=== PATIENT | male | born 1995 | race Caucasian/White ===

== ENCOUNTER 2020-11-30 20:48 | Emergency (ER) | payer BC ==
[2020-11-30] MEDS ORDERED: Lidocaine 1% with EPINEPHrine 1:100,000 10 ML MDV INJECT ONE (22:33)
--- NOTE | 2020-11-30 23:31 | EDM.PDOC ---
ED HPI GENERAL MEDICAL PROBLEM - General Chief Complaint: Laceration Stated Complaint: UPPER LIP LACERATION Time Seen by Provider: 11/30/20 22:20 Source of Information: Reports: Patient History Limitations: Reports: No Limitations - History of Present Illness INITIAL COMMENTS - FREE TEXT/NARRATIVE: Is a 25-year-old male with a laceration to the right upper lip. Patient states a wrench flew off and hit him in the mouth. Patient has no loose teeth or pain no LOC or other complaints. Right Upper Lip Pain Score (Numeric/FACES): 1 - Related Data Allergies Allergy/AdvReac Type Severity Reaction Status Date / Time Penicillins Allergy Hives Verified 09/05/14 11:18 Home Meds: Home Meds lisinopriL [Lisinopril] 10 mg PO QAM 11/30/20 [History] Past Medical History Cardiovascular History: Reports: Hypertension Other Musculoskeletal History: Osteogenesis imprafecta - Infectious Disease History Infectious Disease History: Reports: None - Past Surgical History Musculoskeletal Surgical History: Reports: None Social & Family History - Tobacco Use Tobacco Use Status *Q: Never Tobacco User Second Hand Smoke Exposure: Yes - Caffeine Use Caffeine Use: Reports: Coffee, Soda - Recreational Drug Use Recreational Drug Use: No ED ROS GENERAL - Review of Systems Review Of Systems: See Below Constitutional: Reports: No Symptoms HEENT: Reports: No Symptoms Respiratory: Reports: No Symptoms Cardiovascular: Reports: No Symptoms Endocrine: Reports: No Symptoms GI/Abdominal: Reports: No Symptoms : Reports: No Symptoms Musculoskeletal: Reports: No Symptoms Skin: Reports: Other (laceration) Neurological: Reports: No Symptoms Psychiatric: Reports: No Symptoms Hematologic/Lymphatic: Reports: No Symptoms Immunologic: Reports: No Symptoms ED EXAM, SKIN/RASH Exam: See Below Exam Limited By: No Limitations General Appearance: Alert, WD/WN, No Apparent Distress Throat/Mouth: No: Normal Lips (lac above lip ) Neck: Normal Inspection Respiratory/Chest: No Respiratory Distress, Lungs Clear Cardiovascular: Normal Peripheral Pulses Neurological: Alert, Oriented, Normal Cognition, Normal Gait ED SKIN PROCEDURES - Laceration/Wound Repair Right Upper Face Appearance: Superficial Anesthetic Type: Local Local Anesthesia - Lidocaine (Xylocaine): 1% Plain Local Anesthetic Volume: 3cc Skin Prep: Chlorhexidine (Hibiciens) Saline Irrigation (cc's): 1,000 Exploration/Debridement/Repair: Wound Explored Closed with: Sutures Lac/Wound length In cm: 1 Suture Size: 6-0 Suture Type: Running Course - Vital Signs Last Recorded V/S: Last Vital Signs Temp 97.3 F 11/30/20 22:36 Pulse 83 11/30/20 22:36 Resp 18 11/30/20 22:36 BP 134/78 11/30/20 22:36 Pulse Ox 96 11/30/20 22:36 - Orders/Labs/Meds Meds: Medications Discontinued Medications Generic Name Dose Route Start Last Admin Trade Name Cammie PRN Reason Stop Dose Admin Lidocaine HCl Confirm 11/30/20 22:37 11/30/20 22:41 Lidocaine 1% 5 Ml Sdv Administered 11/30/20 22:38 Not Given Dose 5 ml .ROUTE .STK-MED ONE Lidocaine HCl 5 ml 11/30/20 22:40 11/30/20 22:42 Lidocaine 1% 5 Ml Sdv INJECT 11/30/20 22:41 5 ml ONETIME ONE Administration Lidocaine/Epinephrine 10 ml 11/30/20 22:33 11/30/20 22:41 Lidocaine 1% With Epinephrine 1:100,000 10 Ml Mdv INJECT 11/30/20 22:34 Not Given ONETIME ONE Departure - Departure Time of Disposition: 23:30 Disposition: Home, Self-Care 01 Condition: Good Clinical Impression: Laceration of lip - Discharge Information *PRESCRIPTION DRUG MONITORING PROGRAM REVIEWED*: Not Applicable *COPY OF PRESCRIPTION DRUG MONITORING REPORT IN PATIENT YOJANA: Not Applicable Instructions: Laceration Care, Adult, Facial Laceration, [id number] Referrals: Delano Bartlett MD [Primary Care Provider] - Additional Instructions: The following information is given to patients seen in the emergency department who are being discharged to home. This information is to outline your options for follow-up care. We provide all patients seen in our emergency department with a follow-up referral. The need for follow-up, as well as the timing and circumstances, are variable depending upon the specifics of your emergency department visit. If you don't have a primary care physician on staff, we will provide you with a referral. We always advise you to contact your personal physician following an emergency department visit to inform them of the circumstance of the visit and for follow-up with them and/or the need for any referrals to a consulting specialist. The emergency department will also refer you to a specialist when appropriate. This referral assures that you have the opportunity for follow-up care with a specialist. All of these measure are taken in an effort to provide you with optimal care, which includes your follow-up. Under all circumstances we always encourage you to contact your private physician who remains a resource for coordinating your care. When calling for follow-up care, please make the office aware that this follow-up is from your recent emergency room visit. If for any reason you are refused follow-up, please contact the [facility] Emergency Department at and asked to speak to the emergency department charge nurse. Please follow up with your primary care physician. If you do not have a primary care physician, see below: [facility] [address] [place] [id number] [facility] [address] [place] [id number] Please follow-up with your primary care physician in a 7 to 10 days have sutures removed. 5 any drainage or redness around the area please return to the ED. You can apply bacitracin to the area 3 times a day. If you cannot have your sutures removed by your primary care physician you return to the ED. Sepsis Event Note (ED) - Evaluation Sepsis Screening Result: No Definite Risk - Focused Exam Vital Signs: Vital Signs Temp Pulse Resp BP Pulse Ox 11/30/20 22:36 97.3 F 83 18 134/78 96 - Assessment/Plan Plan: Patient is a 25-year-old male presents today for laceration to the upper lip. Patient has laceration repaired with sutures running suture. Patient will be sent home bacitracin and return precautions.
== END 2020-11-30 23:45 | disposition home or self-care (01) ==
LOC: MW.ED 20:48
DX: S01.511A Laceration without foreign body of lip, initial encounter (principal); I10 Essential (primary) hypertension; Z88.0 Allergy status to penicillin; Z79.899 Other long term (current) drug therapy; W20.8XXA Other cause of strike by thrown, projected or falling object, initial encounter; W26.8XXA Contact with other sharp object(s), not elsewhere classified, initial encounter
CPT/HCPCS: 12011; 99282-25

== ENCOUNTER 2021-05-09 15:33 | Emergency (ER) | payer BC, OTHER ==
--- NOTE | 2021-05-09 16:06 | EDM.PDOC ---
ED HPI GENERAL MEDICAL PROBLEM - General Chief Complaint: Lower Extremity Injury/Pain Stated Complaint: POSSIABLE BROKEN RT LEG Time Seen by Provider: 05/09/21 15:58 - History of Present Illness INITIAL COMMENTS - FREE TEXT/NARRATIVE: History of present illness: [] At 3 PM today while on duty the patient slept and had a direct blow to his right leg. He has a burning type severe pain that he had when he had fractures in the past. He has osteogenesis imperfecta. He has broken the right leg before but not had surgery on it. Review of systems: As per history of present illness and below otherwise all systems reviewed and n egative. Past medical history: As per history of present illness and as reviewed below otherwise noncontributory. Surgical history: As per history of present illness and as reviewed below otherwise noncontributory. Social history: No reported history of drug or alcohol abuse. Family history: As per history of present illness and as reviewed below otherwise noncontributory. Physical exam: Constitutional - well developed, well-nourished and in no acute distress HEENT - normocephalic, no evidence of trauma - external nose and mouth normal - no mass in neck and no JVD - mucosae moist EYES - full EOM, PERRL, no icterus - no evidence of inflammation, injection, or drainage Respiratory - no respiratory distress, equal bilateral expansion Muscle skeletal-tenderness in the mid tibia on the right lower extremity without crepitation. Remainder of the musculoskeletal system without any tenderness of the long bones or joints. Spine not tender. Neurologic - Alert and oriented times four - CN II-XII grossly intact - motor sensory and coordination symmetrically normal Psychiatric - appropriate mood and affect with normal thought content Hematologic - No petechiae or purpura - mucosa appropriate color and sclera not pale - normal nail bed color and refill Integument -extremely superficial abrasion to the mid right pretibial surface otherwise no rash or evidence of trauma - normal turgor Diagnostics: [] Therapeutics: [] Impression: [] Plan: [] Definitive disposition and diagnosis as appropriate pending reevaluation and review of above. right leg Pain Score (Numeric/FACES): 4 - Related Data Allergies Allergy/AdvReac Type Severity Reaction Status Date / Time Penicillins Allergy Hives Verified 05/09/21 15:56 Home Meds: Home Meds lisinopriL [Lisinopril] 10 mg PO QAM 11/30/20 [History] Past Medical History HEENT History: Reports: None Cardiovascular History: Reports: Hypertension Respiratory History: Reports: None Gastrointestinal History: Reports: None Genitourinary History: Reports: None Musculoskeletal History: Reports: Other (See Below) Other Musculoskeletal History: Osteogenesis imprafecta Neurological History: Reports: None Psychiatric History: Reports: None Endocrine/Metabolic History: Reports: None Hematologic History: Reports: None Immunologic History: Reports: None Oncologic (Cancer) History: Reports: None Dermatologic History: Reports: None - Infectious Disease History Infectious Disease History: Reports: None - Past Surgical History Head Surgeries/Procedures: Reports: None HEENT Surgical History: Reports: None Cardiovascular Surgical History: Reports: None Respiratory Surgical History: Reports: None GI Surgical History: Reports: None Male Surgical History: Reports: None Endocrine Surgical History: Reports: None Neurological Surgical History: Reports: None Musculoskeletal Surgical History: Reports: None Oncologic Surgical History: Reports: None Dermatological Surgical History: Reports: None Social & Family History - Family History Family Medical History: No Pertinent Family History - Tobacco Use Tobacco Use Status *Q: Never Tobacco User Second Hand Smoke Exposure: No - Caffeine Use Caffeine Use: Reports: Coffee - Recreational Drug Use Recreational Drug Use: No Review of Systems - Review of Systems Review Of Systems: Comprehensive ROS is negative, except as noted in HPI. ED EXAM, GENERAL - Physical Exam Exam: See Below Free Text/Narrative:: My physical exam is in the HPI Course - Vital Signs Last Recorded V/S: Last Vital Signs Temp 36.4 C 05/09/21 15:55 Pulse 92 05/09/21 15:55 Resp 18 05/09/21 15:55 BP 139/89 05/09/21 15:55 Pulse Ox 97 05/09/21 15:55 - Orders/Labs/Meds Orders: Active Orders 24 hr Category Date Time Status Tibia Fibula Rt [CR] Stat Exams 05/09/21 16:15 Taken Departure - Departure Time of Disposition: 16:29 Disposition: Home, Self-Care 01 Condition: Good Clinical Impression: Contusion of right lower leg, initial encounter - Discharge Information Instructions: Acute Compartment Syndrome, Contusion Referrals: Delano Bartlett MD [Primary Care Provider] - Forms: ED Department Discharge Additional Instructions: You are being given compartment syndrome instructions only so that you know what to watch for. At this point you do not have any evidence of developing compartment syndrome. Ice and elevate and stay off the leg for 12 hours. [facility] Professional Building [address], [address] [place] [address] [facility] [address] [place] [address] [facility] [address] [place] [id number] The following information is given to patients seen in the emergency department who are being discharged to home. This information is to outline your options for follow-up care. We provide all patients seen in our emergency department with a follow-up referral. The need for follow-up, as well as the timing and circumstances, are variable depending upon the specifics of your emergency department visit. If you don't have a primary care physician on staff, we will provide you with a referral. We always advise you to contact your personal physician following an emergency department visit to inform them of the circumstance of the visit and for follow-up with them and/or the need for any referrals to a consulting specialist. The emergency department will also refer you to a specialist when appropriate. This referral assures that you have the opportunity for follow-up care with a specialist. All of these measure are taken in an effort to provide you with optimal care, which includes your follow-up. Under all circumstances we always encourage you to contact your private physician who remains a resource for coordinating your care. When calling for follow-up care, please make the office aware that this follow-up is from your recent emergency room visit. If for any reason you are refused follow-up, please contact the [facility] Emergency Department at and asked to speak to the emergency department charge nurse. Sepsis Event Note (ED) - Evaluation Sepsis Screening Result: No Definite Risk - Focused Exam Vital Signs: Vital Signs Temp Pulse Resp BP Pulse Ox 05/09/21 15:55 36.4 C 92 18 139/89 97 - My Orders Last 24 Hours: My Active Orders 05/09/21 16:15 Tibia Fibula Rt [CR] Stat - Assessment/Plan Last 24 Hours: My Active Orders 05/09/21 16:15 Tibia Fibula Rt [CR] Stat
--- NOTE | 2021-05-09 16:38 | CR ---
INDICATION: Right leg injury. TECHNIQUE: Two views of the right tibia and fibula. COMPARISON: None. FINDINGS: No fracture or other abnormality. IMPRESSION: Negative right tibia and fibula. Dictated by Pascual Cano MD @ 05/09/2021 4:38:00 PM (Electronically Signed)
== END 2021-05-09 16:43 | disposition home or self-care (01) ==
LOC: MW.ED 15:33
DX: S80.11XA Contusion of right lower leg, initial encounter (principal); I10 Essential (primary) hypertension; Z88.0 Allergy status to penicillin; Z79.899 Other long term (current) drug therapy; W01.0XXA Fall on same level from slipping, tripping and stumbling without subsequent striking against object, initial encounter
CPT/HCPCS: 73590-26-RT; 73590-RT; 99283-25

== ENCOUNTER 2024-01-23 20:06 | Emergency (ER) | payer BC ==
[2024-01-23] MEDS: Diphtheria,Pertussis(Acell),Tetanus Vaccine 0.5 ML Syringe IM ONE (21:36)
[2024-01-23] MEDS: Lidocaine 1% 5 ML VIAL INJECT ONE (21:37)
== END 2024-01-23 21:57 | disposition home or self-care (01) ==
LOC: MW.ED 20:06
DX: S51.811A Laceration without foreign body of right forearm, initial encounter (principal); I10 Essential (primary) hypertension; Z79.899 Other long term (current) drug therapy; Z75.8 Other problems related to medical facilities and other health care; Z23 Encounter for immunization; W26.8XXA Contact with other sharp object(s), not elsewhere classified, initial encounter
CPT/HCPCS: 12002; 90471; 90715; 99282; J3490